=== PATIENT | female | born 1945 | race Caucasian/White ===

== ENCOUNTER 2023-11-12 10:06 | Outpatient (CLI) | payer MEDICARE | END 2023-11-12 10:07 | disposition home or self-care (01) | LOC: NAV CT 10:06 | PROVIDERS: ATTEND Nurse Practitioner Family | DX: R63.4 Abnormal weight loss (principal); R19.00 Intra-abdominal and pelvic swelling, mass and lump, unspecified site; R16.1 Splenomegaly, not elsewhere classified; K80.20 Calculus of gallbladder without cholecystitis without obstruction; N20.0 Calculus of kidney; C78.7 Secondary malignant neoplasm of liver and intrahepatic bile duct; C78.00 Secondary malignant neoplasm of unspecified lung; C79.70 Secondary malignant neoplasm of unspecified adrenal gland | CPT/HCPCS: 74176 ==

== ENCOUNTER 2023-11-13 14:50 | Emergency (ER) | payer MEDICARE ==
[2023-11-13] MEDS ORDERED: Sodium Chloride 0.9% 1,000 ML ONE (15:29)
[2023-11-13 15:32] LABS: #Basophils 0.1 thou/uL (0.0-0.2); #Lymphocytes 0.4 thou/uL (1.20-3.40); #Monocytes 0.5 thou/uL (0.11-0.59); #Neutrophils 3.4 thou/uL (1.40-6.50); %Basophils 1.2 % (0.0-1.0); %Lymphocytes 8.3 % (21.0-51.0); %Monocytes 11.8 % (0.0-10.0); %Neutrophils 77.7 % (42.0-75.0); Mean Corpuscular HGB CONC 31.8 g/dL (32.0-36.0); Mean Corpuscular Hemoglobin 28.4 pg (27.0-31.0); Mean Platelet Volume 6.3 fL (7.4-10.4); Platelet Count 147 10x3/uL (130-400); RBC Distribution Width 12.9 % (11.5-14.5)
[2023-11-13] MEDS ORDERED: predniSONE 20 MG TAB ONE (15:36)
[2023-11-13 15:37] LABS: Hematocrit 32.6 % (36.0-47.0); Hemoglobin 10.3 g/dL (12.0-16.0); Mean Corpuscular Volume 89.4 fl (78.0-98.0); Red Blood Cell (RBC) Count 3.64 mill/uL (4.20-5.40); White Blood Cell (WBC) Count 4.4 10x3/uL (4.8-10.8)
[2023-11-13 15:48] LABS: ALT (SGPT) 28 U/L (8-55); AST (SGOT) 81 U/L (5-34); Albumin 3.4 g/dL (3.4-4.8); Alkaline Phosphatase 631 U/L (40-110); Anion Gap 25 mmol/L (10-20); BUN (Urea Nitrogen) 25 mg/dL (9.8-20.1); Bilirubin, Total 1.6 mg/dL (0.2-1.2); Calc. Creatinine Clearance 0 mL/min (70-130); Calcium 8.7 mg/dL (7.8-10.44); Carbon Dioxide 15 mmol/L (23-31); Chloride 95 mmol/L (98-107); Estimated GFR 73; Globulin 3.7 g/dL (2.4-3.5); Glucose 63 mg/dL (83-110); Potassium 4.3 mmol/L (3.5-5.1); Protein, Total 7.1 g/dL (5.8-8.1); Sodium 131 mmol/L (136-145)
[2023-11-13] MEDS ORDERED: Dextrose 5 %-0.45 % NaCl 1,000 ML ONE (19:50)
== END 2023-11-13 22:51 | disposition hospice, home (50) ==
LOC: NAV ERS 14:50
DX: R62.7 Adult failure to thrive (principal); C80.1 Malignant (primary) neoplasm, unspecified
CPT/HCPCS: 70450; 80053; 85025; J7042; J7030; J7512